=== PATIENT | female | born 1955 | race African-American/Black ===

== ENCOUNTER 2023-11-23 04:39 | Day surgery (SDC) | payer OTHER, BC ==
[2023-11-18 15:31] VITALS: BMI 41.3
[2023-11-23] MEDS: TETRACAINE 0.5% OPHTH SOLN 2 ML BOTTLE OD ONE
[2023-11-23] MEDS: LEVOBUNOLOL HCL 0.5% OD ONE
[2023-11-23] MEDS ORDERED: EPINEPHrine/PF 1 MG/1 ML (1:1,000) AMPULE ONE (09:19)
[2023-11-23] MEDS ORDERED: POVIDONE-IODINE 5% OPHTHALMIC PREP 30 ML SOLUTION ONE (09:20)
[2023-11-23] MEDS ORDERED: TRYPAN BLUE 0.5 ML DISP.SYRIN ONE (09:20)
[2023-11-23] MEDS ORDERED: LIDOCAINE HCL/PF 1% SDV 5ML VIAL ONE (09:20)
[2023-11-23] MEDS ORDERED: TETRACAINE 0.5% OPHTH SOLN 2 ML BOTTLE ONE (09:20)
[2023-11-23] MEDS ORDERED: CYCLOPENTOLATE HCL 1% OPHTH SOLN 2 ML BOTTLE ONE (09:30)
[2023-11-23] MEDS ORDERED: KETOROLAC TROMETHAMINE 0.5% EYE DROP 1 DROP DROPS ONE (09:30)
[2023-11-23] MEDS ORDERED: TROPICAMIDE 1% OPHTH SOLN 15 ML BOTTLE ONE (09:31)
[2023-11-23] MEDS: TROPICAMIDE 1% OPHTH SOLN 15 ML BOTTLE OP SCH (10:05)
[2023-11-23] MEDS: POLYMYXIN B SULFATE/TMP 10 ML OPHTHALMIC SOLUTION OD SCH (10:05)
[2023-11-23] MEDS: KETOROLAC TROMETHAMINE 0.5% EYE DROP 1 DROP DROPS OP SCH (10:05)
[2023-11-23] MEDS: PHENYLEPHRINE 2.5% OPHTH SOLN 15 ML BOTTLE OP SCH (10:05)
[2023-11-23] MEDS: CYCLOPENTOLATE HCL 1% OPHTH SOLN 2 ML BOTTLE OP SCH (10:05)
[2023-11-23] MEDS ORDERED: MIDAZOLAM HCL 2 MG/2 ML SINGLE DOSE VIAL ONE (11:28)
[2023-11-23] MEDS: TETRACAINE 0.5% OPHTH SOLN 2 ML BOTTLE TP ONE (11:39)
[2023-11-23] MEDS: POVIDONE-IODINE 5% OPHTHALMIC PREP 30 ML SOLUTION OD ONE (11:40)
[2023-11-23] MEDS: BSS (NA/CA/MG/K) BALANCED SALT SOLUTION OPHTH SOLN 15 ML BOTTLE OD ONE ×2 (11:50)
[2023-11-23] MEDS: CHONDROITIN SU A/HYALUR SOD 1 KIT IO ONE ×3 (11:51)
[2023-11-23] MEDS: LIDOCAINE HCL 1% PRESERVATIVE FREE - 30ML VIAL IO ONE ×2 (11:51)
[2023-11-23] MEDS: EPINEPHrine 1:1,000 1,000 MCG/ML ML SQ ONE ×2 (11:58)
[2023-11-23 12:21] VITALS: RESP 20
[2023-11-23] MEDS: ACETAMINOPHEN 325 MG TABLET (FP) PO PRN (13:06)
[2023-11-23] MEDS ORDERED: ACETAMINOPHEN 325 MG TABLET (FP) ONE (13:07)
[2023-11-23 13:17] VITALS: TEMP 97.8
[2023-11-23 13:20] VITALS: BP 153/85; PULSE 69
== END 2023-11-23 13:35 | disposition home or self-care (01) ==
LOC: JASU-SURG 04:39
PROVIDERS: ATTEND Ophthalmology
PROC: 08RJ3JZ Replacement of Right Lens with Synthetic Substitute, Percutaneous Approach (ICD-10-PCS; principal; 2023-11-23 11:00)
DX: H26.9 Unspecified cataract (principal)
CPT/HCPCS: 82962; V2632